=== PATIENT | male | born 1970 | race Caucasian/White ===

== ENCOUNTER 2022-01-07 03:38 | Inpatient (IN) | payer SELFPAY ==
[2022-01-07] MEDS ORDERED: cefTRIAXone\\ROCEPHIN 1 GM VIAL ONE (04:25)
[2022-01-07] MEDS ORDERED: Azithromycin 250 MG TAB ONE (04:25)
[2022-01-07 04:50] LABS: #Basophils 0.1 thou/uL (0.0-0.2); #Eosinphils 0.2 thou/uL (0.0-0.7); #Lymphocytes 2.3 thou/uL (1.20-3.40); #Monocytes 0.9 thou/uL (0.11-0.59); #Neutrophils 11.7 thou/uL (1.40-6.50); %Basophils 0.6 % (0.0-1.0); %Eosinophils 1.5 % (0.0-10.0); %Lymphocytes 15.3 % (21.0-51.0); %Neutrophils 76.7 % (42.0-75.0); Hemoglobin 14.7 g/dL (14.0-18.0); Mean Corpuscular Hemoglobin 31.9 pg (27.0-31.0); Mean Corpuscular Volume 96.5 fl (78.0-98.0); Mean Platelet Volume 6.4 fL (7.4-10.4); Platelet Count 252 thou/uL (130-400); RBC Distribution Width 12.4 % (11.5-14.5); Red Blood Cell (RBC) Count 4.62 mill/uL (4.70-6.10); White Blood Cell (WBC) Count 15.3 thou/uL (4.8-10.8)
[2022-01-07 05:14] LABS: ALT (SGPT) 53 U/L (8-55); AST (SGOT) 80 U/L (5-34); Albumin 4.1 g/dL (3.5-5.0); Alkaline Phosphatase 93 U/L (40-110); Anion Gap 12 mmol/L (10-20); BUN (Urea Nitrogen) 15 mg/dL (8.9-20.6); Bilirubin, Total Less than 0.2 mg/dL (0.2-1.2); Calc. Creatinine Clearance 0 mL/min (70-130); Calcium 8.7 mg/dL (7.8-10.44); Carbon Dioxide 25 mmol/L (22-29); Chloride 109 mmol/L (98-107); Estimated GFR 107; Globulin 3.1 g/dL (2.4-3.5); Glucose 111 mg/dL (70-105); Lipase 626 U/L (8-78); Potassium 4.2 mmol/L (3.5-5.1); Protein, Total 7.2 g/dL (6.0-8.3); Sodium 142 mmol/L (136-145)
[2022-01-07 05:22] LABS: Bilirubin Negative (Negative); Blood, Urine Negative (Negative); Clarity Clear (Clear); Glucose, Urine (Dipstick) Normal (Negative); Ketone, Urine Negative (Negative); Leukocyte Negative Leu/uL (Negative); Nitrite Negative (Negative); Protein, Urine (Dipstick) Negative (Neg-Trace); Specific Gravity, Urine 1.017 (1.002-1.036); Urobilinogen Normal mg/dL (Less than 2)
[2022-01-07] MEDS ORDERED: Ondansetron PF 4 MG/2 ML Vial ONE (06:28)
[2022-01-07] MEDS ORDERED: Morphine 4 MG/ML VIAL ONE (06:28)
[2022-01-07] MEDS ORDERED: Morphine 4 MG/ML VIAL SLOW IVP PRN (08:08)
[2022-01-07] MEDS ORDERED: Acetaminophen 325 MG TAB PO PRN (08:08)
[2022-01-07] MEDS ORDERED: HYDROcodone/Acetaminophen 5/325 mg Tablet PO PRN (08:08)
[2022-01-07] MEDS ORDERED: Nicotine 14 MG PATCH TD PRN (08:08)
[2022-01-07] MEDS ORDERED: Ondansetron PF 4 MG/2 ML Vial IVP PRN (08:08)
[2022-01-07] MEDS ORDERED: Diazepam 5 MG TAB PO PRN (08:16)
[2022-01-07] MEDS: Tamsulosin HCl 0.4 MG CAP PO SCH (10:58)
[2022-01-07] MEDS: Folic Acid 1 MG TAB PO SCH (10:59)
[2022-01-07] MEDS: Sodium Chloride 0.9% 1,000 ML IV SCH ×2 (10:59→20:30)
[2022-01-07] MEDS: Thiamine 100 MG TAB PO SCH (10:59)
[2022-01-07] MEDS: Multivitamin W/ Minerals 1 TAB PO SCH (11:00)
[2022-01-07 15:56] VITALS: BMI 21.4
[2022-01-08] MEDS: Sodium Chloride 0.9% 1,000 ML IV SCH ×5 (02:30→19:46)
[2022-01-08 05:40] LABS: #Basophils 0.1 thou/uL (0.0-0.2); #Eosinphils 0.2 thou/uL (0.0-0.7); #Monocytes 0.8 thou/uL (0.11-0.59); #Neutrophils 4.7 thou/uL (1.40-6.50); %Basophils 1.1 % (0.0-1.0); %Eosinophils 1.6 % (0.0-10.0); %Lymphocytes 40.9 % (21.0-51.0); %Monocytes 8.2 % (0.0-10.0); %Neutrophils 48.1 % (42.0-75.0); Hemoglobin 13.6 g/dL (14.0-18.0); Mean Corpuscular HGB CONC 31.3 g/dL (32.0-36.0); Mean Corpuscular Hemoglobin 30.2 pg (27.0-31.0); Mean Corpuscular Volume 96.4 fl (78.0-98.0); Mean Platelet Volume 6.3 fL (7.4-10.4); Platelet Count 245 thou/uL (130-400); RBC Distribution Width 12.5 % (11.5-14.5); White Blood Cell (WBC) Count 9.7 thou/uL (4.8-10.8)
[2022-01-08 06:07] LABS: ALT (SGPT) 48 U/L (8-55); AST (SGOT) 29 U/L (5-34); Albumin 3.7 g/dL (3.5-5.0); Alkaline Phosphatase 96 U/L (40-110); Anion Gap 11 mmol/L (10-20); BUN (Urea Nitrogen) 12 mg/dL (8.9-20.6); Bilirubin, Total 0.4 mg/dL (0.2-1.2); Calc. Creatinine Clearance 101 mL/min (70-130); Calcium 8.9 mg/dL (7.8-10.44); Carbon Dioxide 24 mmol/L (22-29); Chloride 106 mmol/L (98-107); Estimated GFR 106; Globulin 2.8 g/dL (2.4-3.5); Glucose 86 mg/dL (70-105); Lipase 16 U/L (8-78); Protein, Total 6.5 g/dL (6.0-8.3); Sodium 137 mmol/L (136-145)
[2022-01-08] MEDS: Thiamine 100 MG TAB PO SCH (08:57)
[2022-01-08] MEDS: Tamsulosin HCl 0.4 MG CAP PO SCH (08:57)
[2022-01-08] MEDS: Folic Acid 1 MG TAB PO SCH (08:57)
[2022-01-08] MEDS: Multivitamin W/ Minerals 1 TAB PO SCH (08:57)
[2022-01-08] MEDS: Enoxaparin Sodium 40 MG/0.4 ML SYRINGE SC SCH (08:58)
[2022-01-09] MEDS: Sodium Chloride 0.9% 1,000 ML IV SCH ×6 (00:44→19:48)
[2022-01-09] MEDS: Enoxaparin Sodium 40 MG/0.4 ML SYRINGE SC SCH (08:48)
[2022-01-09] MEDS: Multivitamin W/ Minerals 1 TAB PO SCH (08:49)
[2022-01-09] MEDS: Folic Acid 1 MG TAB PO SCH (08:50)
[2022-01-09] MEDS: Tamsulosin HCl 0.4 MG CAP PO SCH (08:50)
[2022-01-09] MEDS: Thiamine 100 MG TAB PO SCH (08:50)
[2022-01-10] MEDS: Sodium Chloride 0.9% 1,000 ML IV SCH ×3 (06:00→22:29)
[2022-01-10] MEDS: Enoxaparin Sodium 40 MG/0.4 ML SYRINGE SC SCH (08:05)
[2022-01-10] MEDS: Thiamine 100 MG TAB PO SCH (08:06)
[2022-01-10] MEDS: Folic Acid 1 MG TAB PO SCH (08:06)
[2022-01-10] MEDS: Multivitamin W/ Minerals 1 TAB PO SCH (08:06)
[2022-01-10] MEDS: Tamsulosin HCl 0.4 MG CAP PO SCH (08:06)
[2022-01-11] MEDS: Sodium Chloride 0.9% 1,000 ML IV SCH ×4 (04:57→16:00)
[2022-01-11] MEDS: Enoxaparin Sodium 40 MG/0.4 ML SYRINGE SC SCH (08:42)
[2022-01-11] MEDS: Folic Acid 1 MG TAB PO SCH (08:42)
[2022-01-11] MEDS: Multivitamin W/ Minerals 1 TAB PO SCH (08:42)
[2022-01-11] MEDS: Thiamine 100 MG TAB PO SCH (08:42)
[2022-01-11] MEDS: Tamsulosin HCl 0.4 MG CAP PO SCH (08:42)
[2022-01-11 11:06] VITALS: BP 105/65; TEMP 98.8
== END 2022-01-11 16:30 | disposition home or self-care (01) | DRG 440 ==
LOC: SUATTDRO 03:38 → ERS 03:38 → SURG A 09:46 → OBSVTOIN 01-08 13:24
PROVIDERS: ADMIT Internal Medicine; ATTEND Internal Medicine
DX: K85.20 Alcohol induced acute pancreatitis without necrosis or infection (principal); F17.210 Nicotine dependence, cigarettes, uncomplicated; N40.0 Benign prostatic hyperplasia without lower urinary tract symptoms; F10.20 Alcohol dependence, uncomplicated; E86.9 Volume depletion, unspecified; Z88.0 Allergy status to penicillin; Z71.6 Tobacco abuse counseling; Z71.41 Alcohol abuse counseling and surveillance of alcoholic; Z98.1 Arthrodesis status; Z98.890 Other specified postprocedural states; Z82.49 Family history of ischemic heart disease and other diseases of the circulatory system
CPT/HCPCS: 36415; 76705; 80053; 81003; 83690; 84484; 85025; 87086; 93005; 96361; 96365; 96372; 96375; G0378; J0696; J1650; J2270; J2405; J7050